=== PATIENT | female | born 1970 | race Caucasian/White ===

== ENCOUNTER → 2016-11-02 | Outpatient (CLI) | payer BC ==
--- NOTE | 2016-11-02 14:39 | REP ---
Pelvic sonography: History: Postmenopausal bleeding. Findings: Transabdominal and transvaginal scanning are performed. Uterine dimensions are 9.9 x 4.4 x 5.6 cm. Endometrial echo is 1.1 cm thick and centrally placed. Uterine texture is somewhat heterogeneous. There are Nabothian cysts in the cervix. No focal uterine mass is seen. No free fluid is seen. The right ovary measures 3.3 x 1.3 x 1.6 cm. Left ovarian dimensions are 1.7 x 1.5 x 1.2 cm. The left ovary is only visualized transabdominally. No left ovarian mass or cyst is seen. There is a 1.4 x 0.8 x 0.7 cm cystic area in the right ovary consistent with a follicle. Impression: Somewhat thickened endometrium. No other significant finding. A 1.4 cm follicle cyst right ovary. Signed by Ramiro Farnsworth MD 11/02/2016 07:17 P
== END ==
LOC: M SMT 08:29
PROVIDERS: ATTEND Obstetrics & Gynecology
DX: N95.0 Postmenopausal bleeding (principal)

== ENCOUNTER → 2016-11-19 | Day surgery (SDC) | payer BC ==
[~2016-11-19] VITALS: Ht 167.6 cm; Wt 63.5 kg
[~2016-11-19] MED LIST: GLYCOPYRROLATE INJ 0.2 MG/ML 2 ML VIAL As Ordered ONE; HYDROmorphone HCL 1 MG/ML SYRINGE (J1170) As Ordered ONE; IBUPROFEN 600 MG TAB PO PRN; KETOROLAC 60 MG/2 ML VIAL (J1885) As Ordered ONE; LIDOCAINE 2% INJ 100 MG/5 ML SDV (FOR ANES.) As Ordered ONE; LR 1,000 ML IV SCH; MIDAZOLAM INJ 2 MG/2 ML VIAL (J2250) As Ordered ONE; ONDANSETRON 4MG/2ML VIAL (J2405) As Ordered ONE; PERCOCET 5MG/325MG TAB PO PRN; PROPOFOL 200 MG/20 ML VIAL As Ordered ONE; dexameTHASONE 4 MG/ML 1ML VIAL (J1100) As Ordered ONE; fentaNYL 100 MCG/2 ML INJECTION (J3010) As Ordered ONE; fentaNYL 100 MCG/2 ML INJECTION (J3010) IV PRN
[2016-11-19 10:41] LABS: CONTROL LINE UCG INT CTR LINE PRESENT
[2016-11-19 14:00] VITALS: BP 113/73
--- NOTE | 2016-11-19 15:15 | RO ---
DATE OF SURGERY: 11/19/2016 PREOPERATIVE DIAGNOSES/INDICATION FOR SURGERY: Postmenopausal bleeding, thickened endometrium by ultrasound. POSTOPERATIVE DIAGNOSES: Postmenopausal bleeding, thickened endometrium by ultrasound with tiny endometrium polyp. SURGERY: Dilation and curettage (D and C), hysteroscopy, MyoSure resection. SURGEON: Dr. June Canchola SCAFFOLDER: ANESTHESIA: Laryngeal mask airway (LMA), general. BRIEF DESCRIPTION OF PROCEDURE AND FINDINGS: Flora was brought to the operating room where laryngeal mask airway (LMA) general anesthesia was induced and she was prepped, draped and positioned in the usual sterile fashion with the bladder emptied and the anterior aspect of the cervix was grasped with a single tooth tenaculum. The uterus was sounded to 7 and the cervix carefully dilated and the hysteroscope placed. A tiny posterior endometrial polyp was noted and a little bit of thickening of the endometrium especially posteriorly was noted. The MyoSure resector was used to just remove all of that and to sample the anterior endometrium as well which was a more typical thin endometrium for postmenopausal state as compared to this polyp and slight bit of asynchronous appearing overgrowth posteriorly and we were able to get good sampling within the endometrial cavity as documented in the hysteroscopic pictures and as we backpedaled through the cervix there were no cervical lesions other than approximately a millimeter polyp in the cervix which we also removed and nothing significant appearing and the procedure was then ended. Estimated blood loss for the procedure about 5 mL. Fluid replacement was Crystalloid. COMPLICATIONS: None. CONDITION AND DISPOSITION: Flora tolerated the procedure well and was recovering in the recovery room in good condition.
== END | disposition home or self-care (01) ==
LOC: M SDC 09:57
PROVIDERS: ATTEND Obstetrics & Gynecology
DX: N95.0 Postmenopausal bleeding (principal); R93.8 Abnormal findings on diagnostic imaging of other specified body structures; N84.0 Polyp of corpus uteri; E78.00 Pure hypercholesterolemia, unspecified; D86.9 Sarcoidosis, unspecified
CPT/HCPCS: 58558; 84703; 88305; J1100; J1170; J1885; J2250; J2405; J3010

== ENCOUNTER → 2017-06-01 | Outpatient (REF) | payer BC ==
[2017-06-01 13:59] LABS: FREE T4 0.96 NG/DL (0.76-1.46)
[2017-06-03 00:08] LABS: Lyme Disease IgG/IgM Antibodie <0.91 ISR (0.00-0.90); Lyme Disease IgM Ab Quantitati <0.80 index (0.00-0.79)
== END ==
LOC: M LABDRAW1 11:28
PROVIDERS: ATTEND Physician Assistant Medical
DX: R53.83 Other fatigue (principal); M25.50 Pain in unspecified joint

== ENCOUNTER → 2017-09-13 | Outpatient (CLI) | payer BC | LOC: M WUC 17:41 | DX: M25.531 Pain in right wrist (principal); M79.641 Pain in right hand; M19.041 Primary osteoarthritis, right hand | CPT/HCPCS: 73110 ==

== ENCOUNTER → 2017-09-17 | Outpatient (REF) | payer BC ==
[2017-09-17 12:47] LABS: INFLUENZA A AMPLIFICATION NEGATIVE (NEGATIVE); INFLUENZA B AMPLIFICATION NEGATIVE (NEGATIVE); RSV AMPLIFICATION NEGATIVE (NEGATIVE)
== END ==
LOC: M LAB REF 12:01
DX: J11.1 Influenza due to unidentified influenza virus with other respiratory manifestations (principal)
CPT/HCPCS: 87502

== ENCOUNTER → 2019-01-24 | Outpatient (REF) | payer BC ==
[2019-01-24 12:58] LABS: BASO # 0.1 10^3/uL (0.0-0.2); BASO % 1.4 % (0.0-1.0); EOS # 0.1 10^3/uL (0.0-0.50); EOS % 3.4 % (0.0-3.0); HEMATOCRIT 41.9 % (36.0-47.0); HEMOGLOBIN 13.8 g/dl (12.0-15.5); LYMPH # 1.1 10^3/uL (1.5-4.5); LYMPH % 32.8 % (24.0-44.0); MEAN CORPUSCULAR HEMOGLOBIN 30.3 pg (27.0-33.0); MEAN CORPUSCULAR HGB CONC 32.9 g/dl (32.0-36.5); MEAN CORPUSCULAR VOLUME 92.1 fl (80.0-96.0); MONO # 0.4 10^3/uL (0.0-0.8); MONO % 10.9 % (0.0-5.0); NEUTROPHILS # 1.8 10^3/uL (1.8-7.7); NEUTROPHILS % 51.5 % (36.0-66.0); PLATELET COUNT, AUTOMATED 209 10^3/uL (150-450); RED BLOOD COUNT 4.55 10^6/uL (4.00-5.40); WHITE BLOOD COUNT 3.5 10^3/uL (4.0-10.0)
[2019-01-24 13:41] LABS: ERYTHROCYTE SEDIMENTATION RATE 3 mm/hr (0-20)
[2019-01-24 13:44] LABS: ALBUMIN 3.8 GM/DL (3.2-5.2); ALT/SGPT 28 U/L (12-78); AMYLASE 83 U/L (25-115); BILIRUBIN,TOTAL 0.4 MG/DL (0.2-1.0); BLOOD UREA NITROGEN 11 MG/DL (7-18); CALCIUM LEVEL 8.9 MG/DL (8.5-10.1); CARBON DIOXIDE LEVEL 30 MEQ/L (21-32); CHLORIDE LEVEL 106 MEQ/L (98-107); CREATININE FOR GFR 0.67 MG/DL (0.55-1.30); FOLLICLE STIMULATING HORMONE 89.2 mIU/mL; FREE T4 0.92 NG/DL (0.76-1.46); GLOMERULAR FILTRATION RATE > 60.0 (>58); GLUCOSE, FASTING 91 MG/DL (70-100); IRON (FE) 119 UG/DL (50-170); LIPASE 146 U/L (73-393); LUTEINIZING HORMONE 36.5 mIU/mL; MONO SCRN NEGATIVE (NEGATIVE); PERCENT SATURATION 45.2 % (13.2-45.0); POTASSIUM SERUM 4.1 MEQ/L (3.5-5.1); RHEUMATOID FACTOR QUANT < 10.0 IU/ML (<15.0); SODIUM LEVEL 141 MEQ/L (136-145); TOTAL 25(OH) VITAMIN D 27.6 NG/ML (30.0-100.0); TOTAL IRON BINDING CAPACITY 263 UG/DL (250-450); TOTAL PROTEIN 6.5 GM/DL (6.4-8.2); TOTAL T3 108.2 NG/DL (60.0-181.0); VITAMIN B12 LEVEL 545 PG/ML (247-911)
[2019-01-28 17:16] LABS: ANTINUCLEAR ANTIBODIES DIRECT Negative (Negative); EBV VIRAL CAPSID AG IgG >600.0 U/mL (0.0-17.9); EBV VIRAL CAPSID AG IgM <36.0 U/mL (0.0-35.9); Lyme Disease IgG/IgM Antibodie <0.91 ISR (0.00-0.90); Lyme Disease IgM Ab Quantitati <0.80 index (0.00-0.79); TSH RECEPTOR ASSAY <0.50 IU/L (0.00-1.75)
== END ==
LOC: M LABNEURO 10:40
PROVIDERS: ATTEND Physician Assistant Medical
DX: M25.519 Pain in unspecified shoulder (principal); R10.9 Unspecified abdominal pain

== ENCOUNTER → 2019-03-02 | Outpatient (REF) | payer BC | LOC: M LABNEURO 10:27 | PROVIDERS: ATTEND Physician Assistant Medical | DX: E05.90 Thyrotoxicosis, unspecified without thyrotoxic crisis or storm (principal) ==

== ENCOUNTER → 2019-03-08 | Outpatient (CLI) | payer BC ==
--- NOTE | 2019-03-08 14:27 | REP ---
PA and lateral chest: Comparison is 07/22/2016. The lung gallegos are clear. The cardiac size is normal. The sophy, mediastinum, and skeletal structures are unremarkable. Impression: Negative PA and lateral chest. There is no interval change. Electronically Signed by Jovon Castillo MD 03/08/2019 02:19 P
[2019-03-08 19:14] LABS: CHOLESTEROL RISK RATIO 3.364 (<5); FREE T4 1.11 NG/DL (0.76-1.46); THYROID STIMULATING HORMONE 0.81 uIU/ML (0.358-3.740)
[2019-03-08 19:15] LABS: THYROGLOBULIN ANTIBODY 20.7 U/ML (<60.0); THYROID PEROXIDASE ANTIBODY 34.3 U/ML (<60.0)
[2019-03-11 00:06] LABS: Lyme Disease IgG/IgM Antibodie <0.91 ISR (0.00-0.90); Lyme Disease IgM Ab Quantitati <0.80 index (0.00-0.79)
== END ==
LOC: M SMT 13:41
PROVIDERS: ATTEND Family Medicine
DX: E03.9 Hypothyroidism, unspecified (principal); R53.83 Other fatigue; E78.49 Other hyperlipidemia; D86.0 Sarcoidosis of lung

== ENCOUNTER → 2019-09-12 | Outpatient (REF) | payer BC ==
[~2019-09-12] MED LIST changes: -GLYCOPYRROLATE INJ 0.2 MG/ML 2 ML VIAL As Ordered ONE; -HYDROmorphone HCL 1 MG/ML SYRINGE (J1170) As Ordered ONE; -IBUPROFEN 600 MG TAB PO PRN; -KETOROLAC 60 MG/2 ML VIAL (J1885) As Ordered ONE; +LEVO50TA5 PO; -LIDOCAINE 2% INJ 100 MG/5 ML SDV (FOR ANES.) As Ordered ONE; -LR 1,000 ML IV SCH; -MIDAZOLAM INJ 2 MG/2 ML VIAL (J2250) As Ordered ONE; -ONDANSETRON 4MG/2ML VIAL (J2405) As Ordered ONE; -PERCOCET 5MG/325MG TAB PO PRN; -PROPOFOL 200 MG/20 ML VIAL As Ordered ONE; -dexameTHASONE 4 MG/ML 1ML VIAL (J1100) As Ordered ONE; -fentaNYL 100 MCG/2 ML INJECTION (J3010) As Ordered ONE; -fentaNYL 100 MCG/2 ML INJECTION (J3010) IV PRN
[2019-09-12 15:55] LABS: BASO # 0.1 10^3/uL (0.0-0.2); BASO % 1.1 % (0.0-1.0); EOS # 0.1 10^3/uL (0.0-0.5); EOS % 1.3 % (0.0-3.0); HEMATOCRIT 43.5 % (36.0-47.0); HEMOGLOBIN 14.3 g/dl (12.0-15.5); LYMPH # 1.1 10^3/uL (1.5-5.0); LYMPH % 19.7 % (24.0-44.0); MEAN CORPUSCULAR HEMOGLOBIN 30.6 pg (27.0-33.0); MEAN CORPUSCULAR HGB CONC 32.9 g/dl (32.0-36.5); MEAN CORPUSCULAR VOLUME 93.1 fl (80.0-96.0); MONO # 0.5 10^3/uL (0.0-0.8); MONO % 9.5 % (0.0-5.0); NEUTROPHILS # 3.8 10^3/uL (1.5-8.5); PLATELET COUNT, AUTOMATED 225 10^3/uL (150-450); RED BLOOD COUNT 4.67 10^6/uL (4.00-5.40); WHITE BLOOD COUNT 5.6 10^3/uL (4.0-10.0)
[2019-09-12 16:12] LABS: ALT/SGPT 24 U/L (12-78); BILIRUBIN,TOTAL 0.3 MG/DL (0.2-1.0); BLOOD UREA NITROGEN 15 MG/DL (7-18); CALCIUM LEVEL 9.2 MG/DL (8.5-10.1); CARBON DIOXIDE LEVEL 31 MEQ/L (21-32); CHLORIDE LEVEL 104 MEQ/L (98-107); CHOLESTEROL LEVEL 289 MG/DL (<200); CHOLESTEROL RISK RATIO 4.661 (<5); CREATININE FOR GFR 0.87 MG/DL (0.55-1.30); FREE T4 1.25 NG/DL (0.76-1.46); GLOMERULAR FILTRATION RATE > 60.0 (>51); GLUCOSE, FASTING 96 MG/DL (70-100); HDL CHOLESTEROL 62 MG/DL (>40); LDL CHOLESTEROL 211 MG/DL (<100); MAGNESIUM LEVEL 1.7 MG/DL (1.8-2.4); NON-HDL-C 227 MG/DL; POTASSIUM SERUM 4.6 MEQ/L (3.5-5.1); SODIUM LEVEL 139 MEQ/L (136-145); TOTAL PROTEIN 6.4 GM/DL (6.4-8.2); TRIGLYCERIDES LEVEL 78 MG/DL (<150)
== END ==
LOC: M LABDRAW1 15:35
PROVIDERS: ATTEND Family Medicine
DX: E03.9 Hypothyroidism, unspecified (principal); E78.00 Pure hypercholesterolemia, unspecified; R00.2 Palpitations